=== PATIENT | male | born 1965 | race Two or more races ===

== ENCOUNTER 2023-04-16 23:25 | Emergency (ER) | payer OTHER ==
[~2023-04-16] VITALS: Ht 167.6 cm; Wt 145.0 kg
[2023-04-17 00:30] LABS: Basophils # (auto) 0 10 ^3/uL (0-0.2); Eosinophils # (auto) 0.1 10 ^3/uL (0-0.8); Hemoglobin 10.1 g/dL (13.5-17.5); Lymphocytes # (auto) 0.8 10 ^3/uL (0.4-5.4); Lymphocytes % (auto) 3.2 % (10.0-50.0); Mean Corpuscular Volume 82.7 fL (80.0-100.0); Monocytes # (auto) 1.2 10 ^3/uL (0-1.3); Neutrophils # (auto) 22.4 10 ^3/uL (1.6-8.6)
[2023-04-17 00:31] LABS: Eosinophils % (auto) 0.3 % (0.0-7.0); Mean Corpuscular Hemoglobin 27.8 pg (28.0-32.0); Mean Corpuscular Hgb Conc. 33.6 g/dL (32.0-36.0); Monocytes % (auto) 4.9 % (0.0-12.0); Neutrophils % (auto) 91.6 % (37.0-80.0); Red Blood Cells 3.62 10^6/uL (4.5-5.90); Red Cell Distribution Width 16.3 % (11.8-14.3); White Blood Cell 24.4 10^3/uL (4.4-10.8)
[2023-04-17 00:43] LABS: INR 1.21 (0.9-1.15); Partial Thromboplastin Time 27.9 SEC (24.5-34.5)
[2023-04-17 00:49] LABS: Albumin 1.4 g/dL (3.4-5.0); BUN/Creatinine Ratio 34.5 (10.0-20.0); Calcium 7.7 mg/dL (8.5-10.1); Magnesium 3.9 mg/dL (1.6-2.6); Potassium 4.5 mmol/L (3.5-5.1)
[2023-04-17 00:52] LABS: Bilirubin, Total 1.7 mg/dL (0.2-1.0); Total Protein 6.8 g/dL (6.4-8.2)
[2023-04-17] MEDS ORDERED: SODIUM CHLORIDE 0.9% 2,000 ML IV ONE (01:15)
[2023-04-17] MEDS ORDERED: SODIUM BICARBONATE 8.4 % INJ 50ML VIAL IV ONE (01:45)
[2023-04-17] MEDS ORDERED: metroNIDAZOLE 500MG/100ML 100 ML IV ONE (02:45)
[2023-04-17] MEDS ORDERED: PIPERACILLIN-TAZOB 3.375GM 100 ML IV ONE (02:45)
[2023-04-17] MEDS ORDERED: SODIUM BICARBONATE 8.4% INJ 50ML SYRINGE ONE (03:06)
[2023-04-17] MEDS ORDERED: levoFLOXacin 500MG 100 ML IV ONE (05:00)
[2023-04-17 06:10] VITALS: BP 112/60
== END 2023-04-17 06:30 | disposition short-term general hospital (02) ==
LOC: ER 23:25
DX: K22.2 Esophageal obstruction (principal); C25.7 Malignant neoplasm of other parts of pancreas; Z88.0 Allergy status to penicillin
CPT/HCPCS: 36415; 36600; 70450; 71045; 71250; 74176; 80053; 82010; 82805; 82962; 83605; 83735; 83880; 84484; 85025; 85610; 85730; 87040; 93005; 96365; 96367; 99285; J1956; J3490; J7030; 96375